=== PATIENT | male | born 1945 ===

== ENCOUNTER 2024-02-25 16:55 | Emergency (ER) | payer MEDICARE, SELFPAY ==
[2024-02-25] VITALS (28 sets, daily range): BP systolic 100–142; BP diastolic 48–97; PULSE 43–126; RESP 9–21; TEMP 36; O2SAT 97
--- NOTE | 2024-02-25 16:45 | RT.EKG_ITS ---
APPROVED REPORT Exam: Resting ECG Reason for Exam: wilson irby Patient Location: E HR:82 bpm ECG Measurements Heart Rate 82 AXIS MA [id number] P [id number] QRSd 82 QRS 79 QT 374 T -41 QTc 438 Conclusion Atrial flutter with variable ventricular response, V-rate 82
--- NOTE | 2024-02-25 17:45 | W.ED.GENAD ---
Discharge Plan Disposition Patient Disposition: Home Condition: Stable Discharge Details Clinical Impression: Atrial flutter, Dehydration Primary Care Provider: Unknown,Unknown ED Provider: Jennifer Flores Home Meds and New Rx's Prescriptions: No Action Eliquis 5 mg tablet 5 mg PO BID tamsulosin 0.4 mg capsule 0.4 mg PO DAILY Ezallor Sprinkle 10 mg capsule, sprinkle 10 mg PO ONCE ezetimibe 10 mg tablet 10 mg PO DAILY levothyroxine [Euthyrox] 125 mcg tablet 125 mcg PO DAILY Discharge Instructions Instructions: Atrial Flutter (DC) Additional Instructions: You were seen in the emergency department today for evaluation of atrial flutter. You had laboratory studies that showed mild dehydration and got fluids for that. You had a cardioversion performed successfully. You need to follow-up with your primary care provider/supervisor public health nursing to discuss next [facility] management as this has happened several times. Please return to the emergency department if you go back into atrial flutter, have chest pain, shortness of breath, or any other symptoms that cause you concern. Thank you for allowing us to be part of your care. HPI General Mode of arrival: ambulatory. Date/Time Provider Initiated Documentation: 02/25/24 17:45. Limitations to Documentation: no limitations. Information obtained by: patient. HPI Narrative: MDM: This is a 78-year-old male patient with a past medical history significant for atrial flutter on Eliquis, presenting for evaluation of the sudden onset of palpitations. My differential includes but is not limited to arrhythmia, specifically atrial flutter, certainly considered metabolic and electrolyte derangements, hyperthyroidism, no chest pain or ischemic symptoms to significantly increase my concern for ACS. I considered toxic exposure and withdrawal syndromes. Reassuringly, we have a definitive onset of symptoms, the patient has had numerous presentations identical to this in the past, has been taking his Eliquis and is appropriately anticoagulated. He is hemodynamically appropriate, mentating, and without fever or other complaint. Will obtain laboratory studies to include CBC, CMP, and TSH. I will hold on a troponin at this time given the lack of ischemic changes on his EKG as well as his lack of chest pain. ED Course: I obtained and reviewed his EKG, which shows an atrial fibrillation with a ventricular response rate in the 80s to 100s. The patient's baseline heart rate is reported to me as 40s to 50s, and given his relative tachycardia, and his symptomatic palpitations I do feel that it is reasonable to consider synchronized cardioversion. I did review the patient's laboratory studies, which showed no leukocytosis, anemia or thrombocytopenia. Chemistry panel demonstrates no significant electrolyte abnormalities though he does have a BUN elevation to 37 with a BUN to creatinine ratio greater than 20-1, for which I have provided him with a liter of IV fluids. The liver enzymes are without abnormalities, and his TSH is on the low end of normal limits. As noted below, a procedural sedation and synchronized cardioversion was performed with conversion to a sinus bradycardia, and the patient was observed in this emergency department for an hour after this procedure and had no recurrence of his atrial flutter, remained chest pain-free and with a post cardioversion EKG that showed sinus bradycardia with no ischemic changes. The patient is following with cardiology in [place], and will contact his provider to update them as to this event and discuss expediting follow-up for definitive management of this condition. At this time, the patient has had a full medical evaluation and is safe for discharge to home. They are hemodynamically stable, ambulatory without dizziness, and tolerating PO. They are understanding of the follow-up plan and return precautions. They left our facility without incident. Jennifer Flores MD HPI: This is a 78-year-old male patient with a past medical history significant for atrial flutter, on Eliquis, presenting for evaluation of palpitations. The patient reports that he is up here vacationing at [facility], typically resides down near [place]. He was sitting and had a sudden onset of palpitations and is following with a supervisor public health nursing in [place] to discuss next steps in management. The is consistent with his prior episodes of atrial fibrillation. He has required numerous cardioversions over the last several months for atrial flutter, he has never received medications for rhythm or rate control, and has never undergone ablation. The patient reports no chest pain, shortness of breath, lightheadedness or dizziness at rest, though he does state that when he stands up he feels quite dizzy, but has not sustained loss of consciousness. He has not had fevers or chills, has been eating and drinking normally, and has otherwise been in his normal state of health. Exam: Gen: Awake and alert, in no apparent distress HEENT: Non-icteric sclera Neck: Supple Lungs: No apparent respiratory distress, normal respiratory effort. Lung sounds clear and equal bilaterally CV: Appears well perfused heart with irregularly irregular rhythm, normal rate though tachycardic for the patient, strong symmetrical distal pulses Abdomen: Non-distended MSK: Moves 4 extremities without apparent limitation in ROM. No pedal edema Skin: Visualized skin without rashes, cyanosis. Neuro: Normal Gait, no obvious focal deficits or facial asymmetry. Speaks in full, clear sentences. Psych: Appropriate for situation. Related Data Home Medications ?Medication ?Instructions ?Recorded ?Confirmed apixaban 5 mg tablet (Eliquis) 5 mg PO BID 02/25/24 02/25/24 ezetimibe 10 mg tablet 10 mg PO DAILY 02/25/24 02/25/24 levothyroxine 125 mcg tablet 125 mcg PO DAILY 02/25/24 02/25/24 (Euthyrox) rosuvastatin 10 mg sprinkle 10 mg PO ONCE 02/25/24 02/25/24 capsule (Ezallor Sprinkle) tamsulosin 0.4 mg capsule 0.4 mg PO DAILY 02/25/24 02/25/24 Allergies Allergy/AdvReac Type Severity Reaction Status Date / Time adhesive Allergy Mild Hives Verified 02/25/24 19:15 General Stated Complaint: Arrhythmia MARIA ELENA: 3 Course Vital Signs Vital signs: Vital Signs Temperature 36.0 C L 02/25/24 17:00 Pulse 60 02/25/24 17:00 Respiratory Rate 20 02/25/24 17:00 Blood Pressure 142/73 H 02/25/24 17:00 Pulse Oximetry 97 02/25/24 17:00 Temperature 36.0 C L 02/25/24 17:00 Temperature Source Tympanic 02/25/24 17:00 Pulse 60 02/25/24 17:00 Pulse 87 02/25/24 17:10 Respiratory Rate 20 02/25/24 17:00 Blood Pressure 142/73 H 02/25/24 17:00 Blood Pressure Position Sitting 02/25/24 17:00 Pulse Oximetry 97 02/25/24 17:00 Oxygen Delivery Method Room Air 02/25/24 17:00 Oxygen Flow Rate 0 02/25/24 17:00 Procedures Procedural Sedation Indication: other (Synchronized cardioversion) ASA Class: II Time of Last PO Intake: 08:00 Preparation: farmworker fryer farm applied, pulse oximeter, suction/airway equipment at bedside and IV secured IV Propofol dose (mg): 35 Patient Tolerated Procedure: well and no complications Complications: none Other Description: Synchronized cardioversion. Indication: Atrial flutter. After timeout procedural sedation was performed as noted above. Pads were placed in the anterior posterior position, and following adequate sedation the patient underwent synchronized cardioversion at 200 J with successful conversion to a sinus rhythm in the first attempt. Repeat EKG obtained after this intervention, patient tolerated the procedure well with no immediate adverse effects. Medical Decision Making Quality:SDOH Health Related Social Needs: No Data to Display PFSH All Active Problems (Updated 02/25/24 @ 19:28 by Jennifer Flores MD) Dehydration (Acute) Atrial flutter (Acute) Social History Smoking/Tobacco Use Status: Never Smoking risk assessment performed?: Yes Alcohol Intake: former Drug use: Never Substance use type: does not use Housing: house Do you feel safe at home: Yes Do you feel safe in your relationship?: Yes
[2024-02-25 18:05] LABS: Absolute Basophil Count 0.04 10^3/uL (0.0-0.2); Absolute Eosinophil Count 0.04 10^3/uL (0.0-0.7); Absolute Lymphocyte Count 1.11 10^3/uL (1.2-3.4); Absolute Monocyte Count 0.46 10^3/uL (0.1-0.8); Absolute Neutrophil Count 4.33 10^3/uL (1.2-6.7); Basophils % 0.7 %; Eosinophils % 0.7 %; HCT 44.7 % (40.0-50.0); HGB 14.4 g/dL (13.5-17.5); Lymphocytes % 18.6 %; MCH 29.4 pg (27.0-33.0); MCHC 32.2 % (32.0-36.0); MCV 91 fL (80-95); MPV 11.4 fL (8.0-11.0); Monocytes % 7.7 %; Neutrophils % 72.3 %; Platelet Count 175 10^3/uL (130-400); RBC 4.89 10^6/uL (4.36-5.78); RDW 13.4 % (11.8-14.1); RDW-SD 45.5 fL; WBC 5.98 10^3/uL (4.4-10.8)
--- NOTE | 2024-02-25 18:15 | RT.EKG_ITS ---
APPROVED REPORT Exam: Resting ECG Reason for Exam: During cardioversion Patient Location: E HR:48 bpm ECG Measurements Heart Rate 48 AXIS MD 242 P 72 QRSd 79 QRS 65 QT 376 T 3 QTc 338 Conclusion Slow sinus arrythmia, bradycardic rate 48 1st degree HB with MD interval 242 No STEMI
[2024-02-25 18:16] LABS: Prothrombin Time 10.2 sec (9.1-11.1)
[2024-02-25 18:30] LABS: ALT 42 U/L (16-63); AST 35 U/L (15-37); Albumin 3.2 g/dL (3.4-5.0); Alkaline Phosphatase 89 U/L (46-116); Anion Gap 8.3 mmol/L (3-11); BUN 37 mg/dL (7-18); CO2 25.7 mmol/L (21.0-32.0); Calcium 9.6 mg/dL (8.5-10.1); Chloride 106 mmol/L (98-107); Estimated GFR 77.52 (mL/min/1.73m2); Glucose 90 mg/dL (74-106); Magnesium 2.1 mg/dL (1.8-2.4); Potassium 4.3 mmol/L (3.5-5.1); Sodium 140 mmol/L (136-145); TSH (W/Ref FT4) 0.36 uIU/mL (0.36-3.74); Total Protein 6.9 g/dL (6.4-8.2)
[2024-02-25] MEDS: Lactated Ringers 1,000 ML 1000 ML IV (18:50)
[2024-02-25] MEDS: Propofol 200 MG/20 ML VIAL (18:51)
== END 2024-02-25 19:39 | disposition home or self-care (01) ==
LOC: ER 21:50
PROVIDERS: Emergency Provider Emergency Medicine; PCP Emergency Medicine
DX: R42 Dizziness and giddiness (principal); R53.1 Weakness; I48.92 Unspecified atrial flutter; E86.0 Dehydration
CPT/HCPCS: 80053; 92960; 93005; 96360; 99152; 99284; 83735; 84443; 85025; 85610; 93010; 99283; J2704